=== PATIENT | female | born 1970 | race Caucasian/White ===

== ENCOUNTER 2019-03-27 07:21 | Outpatient (CLI) | payer OTHER | END 2019-03-27 07:35 | disposition home or self-care (01) | LOC: NUCLEAR 07:21 | DX: E03.8 Other specified hypothyroidism (principal) | CPT/HCPCS: 78012; A9531 ==

== ENCOUNTER 2019-05-11 13:47 | Outpatient (CLI) | payer OTHER | END 2019-05-11 14:15 | disposition home or self-care (01) | LOC: NUCLEAR 13:47 | DX: E05.90 Thyrotoxicosis, unspecified without thyrotoxic crisis or storm (principal); E04.8 Other specified nontoxic goiter; E04.1 Nontoxic single thyroid nodule | CPT/HCPCS: 79005; A9517 ==